=== PATIENT | male | born 1995 | race Caucasian/White ===

== ENCOUNTER 2016-04-06 23:04 | Emergency (ER) | payer SELFPAY ==
[2016-04-06 23:23] VITALS: BP 143/52
--- NOTE | 2016-04-07 00:54 | ED ---
Laceration/Wound HPI - HPI Summary HPI Summary: 21 M presents with right index finger laceration. He says he was doing some homework and cut his finger on some glass. He denies any foreign body presents. He is right handed. He has full ROM of his finger. His tetanus is up to date. He denies any numbness or tingling. - History of Current Complaint Stated Complaint: RT INDEX FINGER LAC Time Seen by Provider: 04/07/16 00:24 Pain Intensity: 9 - Allergy/Home Medications Allergies/Adverse Reactions: Allergies Allergy/AdvReac Type Severity Reaction Status Date / Time No Known Allergies Allergy Verified 04/06/16 23:17 PMH/Surg Hx/FS Hx/Imm Hx Cardiovascular History: Denies: Hx Hypertension Respiratory History: Denies: Hx Asthma Infectious Disease History: No Infectious Disease History: Denies: Traveled Outside the [place] in Last 30 Days - Family History Known Family History: Negative: Cardiac Disease - Social History Alcohol Use: None Substance Use Type: Reports: None Smoking Status (MU): Never Smoked Tobacco Review of Systems Negative: Fever Negative: Chest Pain Negative: Shortness Of Breath Positive: Other - laceration of right index finger All Other Systems Reviewed And Are Negative: Yes Physical Exam Triage Information Reviewed: Yes Vital Signs On Initial Exam: Initial Vitals Temp Pulse Resp BP Pulse Ox 98.5 F 72 16 143/52 98 04/06/16 23:17 04/06/16 23:17 04/06/16 23:17 04/06/16 23:17 04/06/16 23:17 Vital Signs Reviewed: Yes Appearance: Positive: Well-Appearing Skin: Positive: Warm, Dry, Other - 4 cm flap like laceration of proximal phalanx of right index finger, capillary refill <2 secs Head/Face: Positive: Normal Head/Face Inspection Eyes: Positive: Normal, Conjunctiva Clear Respiratory/Lung Sounds: Positive: Clear to Auscultation, Breath Sounds Present Cardiovascular: Positive: Normal, RRR Musculoskeletal: Positive: Strength/ROM Intact - of right index finger, Other - good pulses Procedures - Laceration/Wound Repair 1 Location: Other - right index finger Description: Irregular - flap like Anesthesia: Digital, 1.0% Length, Depth and Shape: 4cm flap like laceration Betadine Prep?: Yes Irrigated w/ Saline (ccs): 100 Laceration/Wound Explored: clean, no foreign body removed Closure: Single Layer Suture Type: Prolene - 4-0 Number of Sutures: 5 Layer Closure?: No Sterile Dressing Applied?: No Diagnostics - Vital Signs Vital Signs Temp Pulse Resp BP Pulse Ox 04/06/16 23:17 98.5 F 72 16 143/52 98 - Laboratory Lab Statement: Any lab studies that have been ordered have been reviewed, and results considered in the medical decision making process. Laceration Repair Course/Dx - Course Course Of Treatment: 21 M presents with laceration to right index finger. denies any foreign body and no foreign body found, placed 5 sutures with prolene 4-0, placed in splint, told to return if develops sign of infection, patient agrees with plan - Differential Dx Differental Diagnoses: Abrasion, Avulsion, Foreign Body, Laceration - Clinical Impression Provider Diagnoses: Laceration of right index finger Discharge - Discharge Plan Condition: Good Disposition: HOME Patient Education Materials: Care For Your Stitches (ED) Referrals: [place] [facility] NAKITA Davis [Medical Doctor] - Additional Instructions: Take Tylenol or ibuprofen for pain every 6 hours as needed Keep area clean and dry and in splint for 48 hours Return to ED or primary in 10-14 days to have sutures removed Return to ED if develop signs of infection such as fever, spreading redness, or pus.
== END 2016-04-07 01:12 | disposition home or self-care (01) ==
LOC: ED 23:04
DX: S61.210A Laceration without foreign body of right index finger without damage to nail, initial encounter (principal); W25.XXXA Contact with sharp glass, initial encounter; Y93.89 Activity, other specified; Y92.9 Unspecified place or not applicable
CPT/HCPCS: 12002; 99282

== ENCOUNTER 2018-01-24 16:19 | Emergency (ER) | payer OTHER ==
[2018-01-24 16:49] VITALS: BP 147/44
--- NOTE | 2018-01-24 18:51 | UC ---
Respiratory Complaint HPI - HPI Summary HPI Summary: Patient complains of hacking cough for about 1 month. He states he has fits of coughing frequently. No posttussive emesis. No fever. Up-to-date on vaccinations. 2 days ago developed sore throat and pain with swallowing. Voice became hoarse. No nausea/vomiting. Is a student at [employer]. - History of Current Complaint Chief Complaint: UCRespiratory Stated Complaint: SORE THROAT, AND COUGH Time Seen by Provider: 01/24/18 18:14 Hx Obtained From: Patient Onset/Duration: Gradual Onset, Lasting Weeks, Still Present Timing: Constant Severity Initially: Moderate Severity Currently: Moderate Pain Intensity: 7 Pain Scale Used: 0-10 Numeric Character: Cough: Nonproductive Aggravating Factors: Nothing Alleviating Factors: Nothing Associated Signs And Symptoms: Positive: URI, Nasal Congestion. Negative: Dyspnea, Fever, Wheezing - Allergies/Home Medications Allergies/Adverse Reactions: Allergies Allergy/AdvReac Type Severity Reaction Status Date / Time No Known Allergies Allergy Verified 01/24/18 16:49 Home Medications: Home Medications Acetaminophen [Tylenol Extra Strength] 5,020 tab PO ONCE PRN 01/24/18 [History Confirmed 01/24/18] PMH/Surg Hx/FS Hx/Imm Hx Previously Healthy: Yes - Surgical History Surgical History: None - Family History Known Family History: Negative: Cardiac Disease - Social History Alcohol Use: Occasionally Substance Use Type: None Smoking Status (MU): Never Smoked Tobacco Review of Systems All Other Systems Reviewed And Are Negative: Yes Constitutional: Positive: Fatigue ENT: Positive: Sore Throat, Nasal Discharge Respiratory: Positive: Cough Cardiovascular: Positive: Negative Gastrointestinal: Positive: Negative Physical Exam Triage Information Reviewed: Yes Appearance: Well-Appearing, No Pain Distress, Well-Nourished Vital Signs: Initial Vital Signs Temp 98 F 01/24/18 16:46 Pulse 62 01/24/18 16:46 Resp 16 01/24/18 16:46 BP 147/44 01/24/18 16:46 Pulse Ox 100 01/24/18 16:46 Laboratory Tests 01/24/18 17:23 Group A Strep Rapid Negative Vital Signs Reviewed: Yes Eyes: Positive: Conjunctiva Clear ENT: Positive: Hearing grossly normal, Pharyngeal erythema, Tonsillar swelling, Tonsillar exudate, Hoarse voice Neck: Positive: Supple, Nontender, No Lymphadenopathy Respiratory Exam: Normal Cardiovascular Exam: Normal Abdomen Description: Positive: Soft Musculoskeletal: Positive: No Edema Neurological: Positive: Alert Psychological: Positive: Age Appropriate Behavior Skin: Negative: Rashes UC Diagnostic Evaluation - Laboratory O2 Sat by Pulse Oximetry: 100 Respiratory Course/Dx - Differential Dx/Diagnosis Provider Diagnosis: Bronchitis Discharge - Sign-Out/Discharge Documenting (check all that apply): Patient Departure All imaging exams completed and their final reports reviewed: No Studies - Discharge Plan Condition: Stable Disposition: HOME Prescriptions: Azithromycin 500 mg PO DAILY #5 tab Codeine Phosphate/Guaifenesin [Codeine-Guaifen 10-100 mg/5 ml] 5 - 10 ml PO Q6H PRN #150 ml MDD 40ML PRN Reason: Cough Patient Education Materials: Acute Bronchitis (ED) Referrals: [facility] [Provider Group] - If Needed Additional Instructions: STREP TEST NEGATIVE. YOUR SYMPTOMS MAY BE VIRALLY MEDIATED BUT GIVEN THE LENGTH OF TIME YOU HAVE BEEN ILL WE WILL COVER YOU WITH ANTIBIOTICS. IF YOU START THE MEDICINE BE SURE TO TAKE IT FOR THE FULL COURSE. REST, HYDRATE, OTC MEDS NEEDED. WILL ALSO GIVE COUGH MEDICINE. SEEK FOLLOW-UP IF YOU ARE NOT IMPROVING OVER THE NEXT 1-2 WEEKS. - Billing Disposition and Condition Condition: STABLE Disposition: Home
== END 2018-01-24 18:52 | disposition home or self-care (01) ==
LOC: UCEAST 16:19
DX: J40 Bronchitis, not specified as acute or chronic (principal)
CPT/HCPCS: 87651; 99212; G0463